=== PATIENT | female | born 1980 | race Hispanic/Latino ===

== ENCOUNTER 2016-11-26 12:59 | Day surgery (SDC) | payer SELFPAY ==
[~2016-11-26] VITALS: Ht 147.3 cm; Wt 56.6 kg
[2016-11-26] VITALS (10 sets, daily range): BP systolic 111–127; BP diastolic 65–76; PULSE 67–86; RESP 14–20; O2SAT 97–100
[~2016-11-26 12:59] MED LIST: Lactated Ringer's 1,000 ML IV SCH; MISO200T4 PO; PREN-51 PO
[2016-11-26] MEDS ORDERED: fentaNYL-PF 50 mCg/mL 2 mL Inj ONE (13:00)
[2016-11-26] MEDS ORDERED: Ondansetron 2 mg/mL 2 mL Inj ONE (13:00)
[2016-11-26] MEDS ORDERED: MetoCLOpramide 5 mg/mL 2 mL Inj ONE (13:00)
[2016-11-26] MEDS ORDERED: Dexamethasone 4 mg/mL Inj ONE (13:00)
[2016-11-26] MEDS ORDERED: Propofol 10,000 mCg/mL 20 mL Inj ONE (13:00)
[2016-11-26] MEDS ORDERED: EPHEDrine/NS 5 mg/mL 5 mL Syringe ONE (13:00)
[2016-11-26] MEDS ORDERED: Lactated Ringer's 1,000 ML IV ONE (13:58)
[2016-11-26 14:45] LABS: BASOPHILS % (AUTO) 0.6 % (0-3); EOSINOPHILS % (AUTO) 0.6 % (0-5); MONOCYTES % (AUTO) 5.2 % (4-12); Mean Corpuscular Hemoglobin 30.1 pg (27.0-35.0); Mean Corpuscular Volume 88.4 fL (81-100); NEUTROPHILS % (AUTO) 73.6 % (40-74); Platelet Count 200 bil/L (150-400)
[2016-11-26] MEDS ORDERED: Lactated Ringer's 500 ML IV PRN (17:06)
[2016-11-26] MEDS ORDERED: Lactated Ringer's 1,000 ML IV SCH (17:06)
[2016-11-26] MEDS ORDERED: Labetalol 5 mg/mL 4 mL Inj IV PRN (17:10)
[2016-11-26] MEDS ORDERED: MetoCLOpramide 5 mg/mL 2 mL Inj IVPUSH PRN (17:10)
[2016-11-26] MEDS ORDERED: Phenylephrine 10,000 mCg/mL Inj IVPUSH PRN (17:10)
[2016-11-26] MEDS ORDERED: EPHEDrine Sulfate 50 mg/mL Inj IVPUSH PRN (17:10)
[2016-11-26] MEDS ORDERED: fentaNYL-PF 50 mCg/mL 2 mL Inj IVPUSH PRN (17:10)
[2016-11-26] MEDS ORDERED: Atropine 0.4 mg/mL Inj IVPUSH PRN (17:10)
[2016-11-26] MEDS ORDERED: Ondansetron 2 mg/mL 2 mL Inj IVPUSH PRN (17:10)
--- NOTE | 2016-11-26 17:21 | PCM.HPANE ---
Patient Data Surgeon Admitting Provider: Attending Provider:Francia Jones MD Primary Care Physician:Arjun Weston MD Other Provider:Baldo Stewart Anesthesia Reason for Visit Missed Ab Ht/WT & BMI Height (Feet): 4 Height (Inches): 10 Weight (Kilograms): 56.6 Body Mass Index 26.00 Allergies Coded Allergies: Penicillins (Verified Allergy, Severe, 11/25/16) Past Anesthesia History Anesthesia History: Denies:: Abnormal Airway, Anesthesia Reactions, Difficult Intubation, Fam Anesthesia Reaction, Fam Malignant Hypertherm, Malignant Hyperthermia Diabetes History Hx Diabetes?: No Medications Home Meds Incl Beta Ankit: No Reported Medications Vit No.78/Iron/FA (Prenatabs FA Tablet)1 Each Tablet1 Each PO DAILY 11/25/16 Misoprostol 200 Mcg [id number] Mcg PO ONCE 11/25/16 History History of ENT Problems?: No HEENT History: Denies:: Abnormal Airway Cataracts Difficult Intubation Dysphagia Glaucoma Hearing Problem Sinus Problem TMJ Denture Type: None Teeth Condition: Within Normal Limits Hx of Heart Problems?: Yes Cardiovascular History: Positive for:: Hypertension (PREECLAMPSIA 2004) Denies:: AICD Abdominal Aortic Aneurism Atrial Fibrillation Cardiac Surgery Chest Pain Congestive Heart Failure Coronary Artery Disease Edema Heart Murmur Irregular Heartbeat Pacemaker Peripheral Vascular Rheumatic Fever Thrombophlebitis Valvular Heart Disease Hx of Respiratory Problem?: No Respiratory History: Positive for:: Tuberculosis (+PPD WITH NORMAL CXR) Denies:: Asthma COPD Chest Surgery Cough Dyspnea Emphysema Hemoptysis Oxygen Administration Pneumonia Pulmonary Embolism Use of C-PAP Machine Use of Inhalers / NEBS Hx Neurologic Problems?: No Neurological History: Denies:: Alzheimer's Disease CVA Dementia Dizziness Headaches Multiple Sclerosis Parkinson's Disease Peripheral Neuropathy Seizures TIA Hx of GI Problems?: No Gastrointestinal History: Denies:: Cirrhosis Diverticulitis Gall Bladder Disease Gastroesphageal Reflux Gastrointestinal Bleeding Heartburn Hepatitis Hiatal Hernia Liver Disease Rectal Bleeding Hx of Problems?: No Genitourinary History: Denies:: HX of Hemodialysis Kidney Stones Urinary Tract Infection HX of Peritoneal Dialysis: No Female Hx: Denies:: Currently Endometriosis Pelvic Inflammatory Problems with Breasts? Skin History: Denies:: History Skin Disorders? Pressure Ulcers Hx Musculoskeletal Problems?: No Musculoskeletal History: Denies:: Back Injury Degenerative Joint Fibromyalgia Joint Replacement Musculoskeletal Trauma Myasthenia Gravis Osteoarthritis Rheumatoid Arthritis Systemic Lupus Hx of Psycho/Social Problems?: No Psycho Social History: Denies:: Anxiety Bipolar Disorder Hx Depression Suicide Attempt Hx Surgeries?: No (L SALPINGECTOMY 01/03. 07/02) Hx Any Other Health Problems?: No Other History: Denies:: Cancer Endocrine Disease Thyroid Disease History Blood Transfusions: Positive for:: Accept Blood Products? Denies:: Blood Transfusions Hx Diabetes: No Hx Alcohol Use: No Stop/Bang S-Snoring: Do You Snore Loudly: No T-Tired: feel tired, fatigued: No O-Obsered: Observed not breath: No P-Blood Pressure: treated: No B- Body Mass Index > 35 kg/m2: No A- Age over 50: No N- Neck Large Circumference: No G- Gender Male: No JAC Total Score: 0 Risk Assessment Category Category 1A: Patient has history of documented sleep apnea, and HAS NOT received any narcotic, sedative or anesthesia administration during this stay. Category 1B: Patient has history of documented sleep apnea, and HAS received any narcotic , sedative or anesthesia administration during this stay Category 2: Patient has SUSPECTED Obstructive Sleep Apnea, and HAS received any narcotic , sedative or anesthesia administration during this stay. Category 3: Patient has SUSPECTED Obstructive Sleep Apnea and HAS NOT received narcotic, sedative or anesthesia administration during this stay. Category 4: Outpatient in Procedural Areas with known sleep apnea or who screen positive for High Risk via the STOP/BANG questionnaire. Exam Exam Vital Signs Vital Signs Date Time Temp Pulse Resp B/P Pulse Ox O2 Delivery O2 Flow Rate FiO2 11/26/16 13:49 36.6 68 14 115/65 97 Room Air General Appearance: Alert, Oriented X3, Cooperative, No Acute Distress HEENT/AIRWAY: MP 2, Neck Movement, Mouth Opening (3 FBMO) Lungs: Clear to Auscultation, Normal Air Movement Heart: Exam Unremarkable, Regular Rate/Rhythm, No Murmurs/Rubs/Gallops Meds/Labs/Diagnostics Admission Meds Current Medications Lactated Ringer's (Lr) 1,000 ml @ ud STK-MED ONCE IV Last administered on t 13:58; Start 11/26/16 at 13:58; Stop 11/26/16 at 13:59; Status DC Plan Impression Patient chart reviewed, patient interviewed and anesthestic plan with risks, benefits, and alternatives discussed, and informed consent obtained. NPO per Anesth. Guidelines: Yes ASA Physical Status: ASA2 Mod Systemic Disease Anesthetic Plan: GA Bene/Risks/Altern/Consents: Yes HP Complete Prior to Induction: Yes Other facing baster present at all times during H&P Santino Avilez MD Nov 26, 2016 14:14
[2016-11-26] MEDS ORDERED: oxyCODONE-Acetamin 5-325 mg Tablet PO PRN (17:35)
--- NOTE | 2016-11-26 17:41 | PCM.ANEP1 ---
Post Anesthesia PACU Phase 1 Assessment Vital Signs Vital Signs Date Time Temp Pulse Resp B/P Pulse Ox O2 Delivery O2 Flow Rate FiO2 11/26/16 13:49 36.6 68 14 115/65 97 Room Air Anesthetic Administered: GA Level of Alertness: Awake, talking CATHERINE's with Equal Strength: Yes Pain: No Nausea or Vomiting: No CV Function & Hydration Stable: No Airway Device: Oxygen Delivery: Simple Mask Lungs: Clear to Auscultation, Normal Air Movement Dermatome Level: Full Sensation PACU Phase 2 Assessment Complications: No Follow up Care: N/A Patient Instructions Provided: N/A Santino Avilez MD Nov 26, 2016 17:41
--- NOTE | 2016-11-27 05:08 | OP ---
[address] [address] OPERATIVE REPORT PATIENT: CORY JAIN : 1980 MR#: [id number] ADMIT: 11/26/2016 JOB ID: [id number] DATE OF SURGERY: 11/26/2016 PREOPERATIVE DIAGNOSIS(ES): A 36-year-old 3, para 1-0-1-1 with embryonic demise. Beta hCG levels 9576 on November 19, 2016; down from 10,106 on November 16. Persisting gestational sac at 6 weeks and 5 days. No yolk sac, no pole on last ultrasound; that was November 20. Prior ultrasound on November 13 showed same with differential diagnosis of early embryonic demise versus blighted ovum. The prior ultrasound on October 30, 2016 showed a 5 week 3 day gestational sac. The patient's LMP is September 20, 2016. The patient opted to proceed with suction D and C. POSTOPERATIVE DIAGNOSIS(ES): A 36-year-old 3, para 1-0-1-1 with embryonic demise. Beta hCG levels 9576 on November 19, 2016; down from 10,106 on November 16. Persisting gestational sac at 6 weeks and 5 days. No yolk sac, no pole on last ultrasound; that was November 20. Prior ultrasound on November 13 showed same with differential diagnosis of early embryonic demise versus blighted ovum. The prior ultrasound on October 30, 2016 showed a 5 week 3 day gestational sac. The patient's LMP is September 20, 2016. The patient opted to proceed with suction D and C. PROCEDURE: Suction D and C. SURGEON: Francia Jones MD ANESTHESIA: General endotracheal. ESTIMATED BLOOD LOSS: 30 cc. INTRAVENOUS FLUIDS GIVEN: 500 cc of crystalloid. COMPLICATIONS: None. CATHETERS: In-and-out catheter at the beginning of the procedure. PACKS: None. DRAINS: None. SPECIMENS REMOVED: Products of conception, sent to Pathology. FINDINGS: Examination under anesthesia revealed no adnexal masses appreciated bilaterally. Anteverted 12-week sized uterus. OPERATIVE FINDINGS: Uterus sounded to 11 cm. Products of conception obtained. PROCEDURE IN DETAIL: Risks, benefits and alternatives of the procedure were discussed with the patient. Informed consent was signed. The patient was moved to the OR with IV running. After general anesthesia was found to be adequate, the patient was placed in the dorsal lithotomy position. Examination under anesthesia revealed the above findings. The patient was prepped and draped in the normal sterile fashion. A weighted speculum was inserted into this patient's vagina. Anterior lip of the cervix was grasped with a single-tooth tenaculum. The uterus sounded to 11 cm. The cervix was dilated with misoprostol. It dilated easily up to Hegar dilator #13. A 12 mm curved curette was introduced into the patient's uterus without difficulty. Suction curettage was performed, followed by sharp curettage, followed by a second time of suction curettage. No more products of conception or blood retrieved. Good hemostasis was assured. All the instruments were removed from the patient's vagina. No bleeding was noted. Good hemostasis was assured, including the single-tooth tenaculum insertion site. The patient was moved to the recovery area in stable condition. Dr. Jones was present and scrubbed for the entire procedure.
--- NOTE | 2016-11-30 14:33 | PATH ---
SURGICAL PATHOLOGY Attending Physician:Francia Jones MD CASE STATUS: Signed Out PATIENT NAME: CORY JAIN PID: [id number] : 1980 DATE COLLECTED:11/26/2016 00:00 SPECIMEN: Products of conception CLINICAL HISTORY: EMBRYONIC DEMISE 1). PRODUCTS OF CONCEPTION FINAL DIAGNOSIS: 1.PRODUCTS OF CONCEPTION: IMMATURE PLACENTAL TISSUE AND DECIDUA WITH INFLAMMATORY AND DEGENERATIVE CHANGES, CONSISTENT WITH SPONTANEOUS . NO TISSUE IDENTIFIED. NO EVIDENCE OF MALIGNANCY. ICD10 O02.1 GROSS DESCRIPTION: The specimen is received in formalin, labeled with the patient's name, sublabeled as products of conception and consists of multiple fragments of holley-white red-brown spongy glistening tissue (7.5 x 6.5 x 1.3 cm in aggregate). No tissue is identified. Section code: (A-D) tissue, billing representative. 11/27/16 JM MICRO DESCRIPTION: See diagnosis. ICD-9 CODES: CPT CODES: 1: 64849 Electronically Signed Out Talya Franklin MD [facility] Pathology [facility] [address], [place] [address] Technical component performed at [facility], [address] [place] [address] [address], [place], [address]
== END 2016-11-26 23:59 | disposition home or self-care (01) ==
LOC: SAS 12:59
PROVIDERS: ATTEND Obstetrics & Gynecology
DX: O02.1 Missed abortion (principal); Z3A.12 12 weeks gestation of pregnancy
CPT/HCPCS: 36415; 59820; 85025; J1100; J2405; J2765; J3010; J7120